=== PATIENT | male | born 1995 | race Two or more races ===

== ENCOUNTER 2017-07-02 20:12 | Emergency (ER) | payer OTHER ==
[~2017-07-02 20:12] MED LIST: ANAPROX DS550 M1 PO; AUGMENTIN875 MG PO; LORTAB 5-325 M1 EACH PO; MOBIC7.5 MG PO; NOHOMEMEDS; PROMETHAZINE HC25 M1 PO; PROZAC40 MG PO; REMERON15 M2 PO; RISPERDAL1 MG PO; TESSALON200 MG PO; ZOFRAN4 MG PO
[2017-07-02 20:30] LABS: BASOPHIL COUNT 0.1 K/uL (0-0.1); EOSINOPHIL COUNT 0.2 K/uL (0-0.3); IMMATURE GRANULOCYTE (%) 0.4 % (0.0-0.7); INSTRUMENT ABS NEUTROPHIL CT 6.1 K/uL; LYMPHOCYTE COUNT 2.3 K/uL (1.0-2.8); MCH 29.8 PG (29.0-34.0); MCHC 36.7 G/DL (30.0-36.0); MCV 81.2 FL (86-99); MEAN PLAT.VOLUME 8.9 uM^3 (9.0-12.4); MONOCYTE (%) 6.9 % (3-12); MONOCYTE COUNT 0.7 K/uL (0-0.8); NEUTROPHIL (%) 65.2 % (45-76); NEUTROPHIL COUNT 6.1 K/uL (1.8-6.4); PLATELET COUNT 294 K/uL (156-360); RBC DIS.WIDTH-CV 12.6 % (11.8-14.6); RBC DIS.WIDTH-SD 37.3 % (39-53); RED BLOOD COUNT 5.54 M/uL (4.00-5.50); WHITE BLOOD COUNT 9.4 K/uL (4.1-10.2)
[2017-07-02 20:47] LABS: AMYLASE 37 IU/L (1-118); CHLORIDE 107 mEq/L (99-109); POTASSIUM 3.7 mEq/L (3.7-5.4); SODIUM 141 mEq/L (136-147)
[2017-07-02 20:49] LABS: GLUCOSE 97 mg/dL (70-99)
[2017-07-02 20:50] LABS: ANION GAP 14 MEQ/L (2-14)
[2017-07-02 20:52] LABS: SERUM ETHYL ALCOHOL 224 mg/dL
[2017-07-02 20:53] LABS: GFR ESTIMATE (CALCULATED) > 59 mL/min/
[2017-07-02 20:54] LABS: UREA NITROGEN (BUN) 8 mg/dL (9-23)
[2017-07-02 20:56] LABS: LIPASE 16 U/L (1.0-51.0)
[2017-07-02 21:14] LABS: ADD MIUA? NO; BILIRUBIN NEGATIVE; BLOOD NEGATIVE; COLOR COLORLESS ((YELLOW)); GLUCOSE (STRIP) NEGATIVE; KETONES NEGATIVE; LEUKOCYTES NEGATIVE; NITRITE NEGATIVE; PROTEIN (STRIP) NEGATIVE; SPECIFIC GRAVITY 1.003 (1.000-1.030); UCUL ADDED? NO; UROBILINOGEN 0.2 MG/DL (0.2-1.0)
[2017-07-02 21:23] LABS: AMPHETAMINE NEGATIVE (500 ng/mL); BARBITURATES NEGATIVE (200 ng/mL); BENZODIAZEPINES NEGATIVE (150 ng/mL); COCAINE NEGATIVE (150 ng/mL); INTERNAL CONTROLS VALID? YES; METHADONE NEGATIVE (200 ng/mL); METHAMPHETAMINE NEGATIVE (500 ng/mL); OPIATES (MORPHINE) NEGATIVE (100 ng/mL); OXYCODONE NEGATIVE (100 ng/mL); PHENCYCLIDINE NEGATIVE (25 ng/mL); PROPOXYPHENE NEGATIVE (300 ng/mL); THC CANNABINOIDS NEGATIVE (50 ng/mL); TRICYCLIC ANTIDEPRESSANTS NEGATIVE (300 ng/mL)
[2017-07-02] MEDS ORDERED: ULTRAM50 MG PO (21:33)
== END 2017-07-02 22:53 | disposition home or self-care (01) ==
LOC: EME 20:12 → TRA 20:12
PROVIDERS: Emergency Medicine
DX: S80.02XA Contusion of left knee, initial encounter (principal); S09.8XXA Other specified injuries of head, initial encounter; M54.2 Cervicalgia; V48.5XXA Car driver injured in noncollision transport accident in traffic accident, initial encounter; W22.10XA Striking against or struck by unspecified automobile airbag, initial encounter; Y92.410 Unspecified street and highway as the place of occurrence of the external cause; F10.129 Alcohol abuse with intoxication, unspecified; Y90.7 Blood alcohol level of 200-239 mg/100 ml
CPT/HCPCS: 70450; 72125; 73564; 80048; 81003; 82150; 83690; 85025; 86850; 86900; 86901; 99281; 99285; G0480

== ENCOUNTER 2018-02-11 16:22 | Emergency (ER) | payer OTHER ==
[~2018-02-11] VITALS: Ht 175.3 cm; Wt 65.9 kg
[~2018-02-11 16:22] MED LIST changes: +ULTRAM50 MG PO
[2018-02-11 17:19] LABS: PLATELET COUNT 227 K/uL (156-360)
[2018-02-11 17:26] LABS: ALBUMIN 4.4 g/dL (3.2-4.8)
[2018-02-11 17:27] LABS: CHLORIDE 99 mEq/L (99-109); POTASSIUM 4.3 mEq/L (3.7-5.4); SODIUM 135 mEq/L (136-147)
[2018-02-11 17:29] LABS: GLUCOSE 89 mg/dL (70-99); TOTAL PROTEIN 7.6 g/dL (6.4-8.3)
[2018-02-11 17:31] LABS: TOTAL BILIRUBIN 0.5 mg/dL (0.0-1.0)
[2018-02-11 17:32] LABS: ALKALINE PHOSPHATASE 100 IU/L (3-129)
[2018-02-11 17:33] LABS: CREATININE 0.8 mg/dL (0.6-1.3); GFR ESTIMATE (CALCULATED) > 59 mL/min/ (58.99-99999)
[2018-02-11 17:34] LABS: AST (GOT) 34 IU/L (2-34); UREA NITROGEN (BUN) 8 mg/dL (9-23)
[2018-02-11 17:35] LABS: ALT (GPT) 31 IU/L (3-49)
[2018-02-11 17:36] LABS: LIPASE 9 U/L (1.0-51.0)
[2018-02-11 17:54] LABS: APPEARANCE CLEAR ((CLEAR)); BILIRUBIN NEGATIVE; BLOOD NEGATIVE; COLOR YELLOW ((YELLOW)); GLUCOSE (STRIP) NEGATIVE; KETONES NEGATIVE; LEUKOCYTES NEGATIVE; NITRITE NEGATIVE; PROTEIN (STRIP) NEGATIVE; SPECIFIC GRAVITY 1.018 (1.000-1.030); UCUL ADDED? NO; UROBILINOGEN 0.2 MG/DL (0.2-1.0)
[2018-02-11] MEDS ORDERED: VALIUM2 MG PO (18:03)
[2018-02-11] MEDS ORDERED: ZOFRAN ODT4 MG PO (18:03)
[2018-02-11] MEDS ORDERED: MOTRIN600 MG PO (18:03)
[2018-02-11 18:24] LABS: HEMATOCRIT 44.5 % (38.0-50.0); HEMOGLOBIN 16.2 G/DL (12.5-16.6); MCH 28.9 PG (29.0-34.0); MCHC 36.4 G/DL (30.0-36.0); MCV 79.8 FL (86-99); RBC DIS.WIDTH-CV 12.6 % (11.8-14.6); RBC DIS.WIDTH-SD 36.2 % (39-53); RED BLOOD COUNT 5.49 M/uL (4.00-5.50); WHITE BLOOD COUNT 8.8 K/uL (4.1-10.2)
[2018-02-11 18:32] VITALS: BP 122/67
== END 2018-02-11 18:34 | disposition home or self-care (01) ==
LOC: EME 16:22
PROVIDERS: Nurse Practitioner Acute Care
DX: M54.9 Dorsalgia, unspecified (principal); R51 Headache; G89.29 Other chronic pain; F17.200 Nicotine dependence, unspecified, uncomplicated; F12.90 Cannabis use, unspecified, uncomplicated
CPT/HCPCS: 80053; 81003; 83690; 85027; 99281; 99284